=== PATIENT | female | born 1935 | race Caucasian/White ===

== ENCOUNTER 2019-04-08 07:14 | Day surgery (SDC) | payer OTHER | END 2019-04-08 13:45 | disposition home or self-care (01) | LOC: FASU 07:14 ==

== ENCOUNTER 2019-05-13 10:59 | Day surgery (SDC) | payer OTHER ==
[2019-05-13] MEDS ORDERED: CYCLOPENTOLATE HCL 1% OPHTH SOLN 2 ML BOTTLE ONE (11:13)
[2019-05-13] MEDS ORDERED: KETOROLAC TROMETHAMINE 0.5% EYE DROP 1 DROP DROPS ONE (11:14)
[2019-05-13] MEDS ORDERED: OFLOXACIN 0.3% OPHTHALMIC SOLUTION 5 ML BOTTLE ONE (11:14)
[2019-05-13] MEDS ORDERED: TROPICAMIDE 1% OPHTH SOLN 15 ML BOTTLE ONE (11:14)
[2019-05-13] MEDS ORDERED: PHENYLEPHRINE 2.5% OPHTH SOLN 15 ML BOTTLE ONE (11:14)
[2019-05-13] MEDS ORDERED: TROPICAMIDE 1% OPHTH SOLN 15 ML BOTTLE OD ONE ×4 (11:30→11:45)
[2019-05-13] MEDS ORDERED: OFLOXACIN 0.3% OPHTHALMIC SOLUTION 5 ML BOTTLE OD ONE ×2 (11:30→11:50)
[2019-05-13] MEDS ORDERED: PHENYLEPHRINE 2.5% OPHTH SOLN 15 ML BOTTLE OD ONE ×4 (11:30→11:45)
[2019-05-13] MEDS ORDERED: KETOROLAC TROMETHAMINE 0.5% EYE DROP 1 DROP DROPS OD ONE ×4 (11:30→11:45)
[2019-05-13] MEDS ORDERED: CYCLOPENTOLATE HCL 1% OPHTH SOLN 2 ML BOTTLE OD ONE ×4 (11:30→11:45)
[2019-05-13 11:53] VITALS: BMI 33.8
[2019-05-13] MEDS ORDERED: MIDAZOLAM HCL 2 MG/2 ML SINGLE DOSE VIAL ONE (12:44)
[2019-05-13] MEDS ORDERED: ACETAMINOPHEN 325 MG TABLET (FP) PO PRN (12:46)
[2019-05-13] MEDS ORDERED: NEO/POLYMYX B SULF/DEXAMETH OPHTHALMIC 5ML BOTTLE ONE ×2 (12:51→13:02)
[2019-05-13] MEDS ORDERED: EPI-SHUGARCAINE (EPINEPHRINE 0.025% & LIDOCAINE-PF 0.75%) 4ML ONE (12:51)
[2019-05-13] MEDS ORDERED: ACETYLCHOLINE 1:100 INTRA-OCUL 20 MG/2 ML KIT ONE ×3 (12:51→14:55)
[2019-05-13] MEDS ORDERED: POVIDONE-IODINE 5% OPHTHALMIC PREP 30 ML SOLUTION ONE (12:51)
[2019-05-13] MEDS ORDERED: BACITRACIN/POLYMYXIN OPH OINT 3.5 GM TUBE ONE ×2 (12:51→13:01)
[2019-05-13] MEDS ORDERED: TETRACAINE 0.5% OPHTH SOLN 2 ML BOTTLE ONE (12:51)
[2019-05-13] MEDS ORDERED: BETAXOLOL HCL 0.25% OPHTHALMIC 10 ML DROPSBTL ONE (12:51)
[2019-05-13] MEDS ORDERED: LIDOCAINE HCL/PF 2% SDV 5ML VIAL ONE (13:02)
[2019-05-13] MEDS ORDERED: BUPIVACAINE HCL/PF 0.5% (5MG/ML) 10 ML VIAL ONE (13:02)
[2019-05-13] MEDS ORDERED: LIDOCAINE HCL 2% JELLY 10 ML CARTRIDGE ONE (13:02)
[2019-05-13] MEDS ORDERED: BUPIVACAINE HCL/PF 0.5% (5MG/ML) 10 ML VIAL IJ ONE (13:19)
[2019-05-13] MEDS ORDERED: LIDOCAINE HCL 2% (50ML VIAL) INF ONE (13:19)
[2019-05-13] MEDS ORDERED: KETOROLAC TROMETHAMINE 30 MG/1 ML VIAL ONE (13:23)
[2019-05-13] MEDS ORDERED: PROPOFOL 20 ML ONE (13:26)
[2019-05-13] MEDS ORDERED: BSS (NA/CA/MG/K) BALANCED SALT SOLUTION OPHTH SOLN 15 ML BOTTLE ONE (14:26)
[2019-05-13] MEDS ORDERED: CARBACHOL 0.01% INTRA-OCULAR 1.5 ML VIAL ONE (14:55)
[2019-05-13] MEDS ORDERED: acetaZOLAMIDE 250 MG TABLET PO ONE (16:00)
[2019-05-13 16:17] VITALS: BP 132/74; PULSE 78; TEMP 98
--- NOTE | 2019-05-13 20:58 | OP ---
DATE OF OPERATION: 05/13/2019 PROCEDURE: Planned extracapsular cataract extraction, phacoemulsification, insertion of anterior chamber lens implant, right eye, pupillary myosis. PREOPERATIVE DIAGNOSIS: Hypermature cataract, right eye with pupillary myosis. POSTOPERATIVE DIAGNOSIS: Hypermature cataract, right eye with pupillary myosis. SURGEON: Jose Nguyen MD [employer] MEMBER SURGEON: Jose Nguyen MD ANESTHESIA: Local with standby. SERVICE AND REPAIR SUPERVISOR: Dr. Landa DESCRIPTION OF PROCEDURE: After successful peribulbar anesthesia was given in the operating room, the patient was prepped and draped in the usual manner to expose the right eye. Tegaderm strips and lid speculum were inserted, and a microscope were in position over the eye. A superior fornix-based flap was then fashioned for 12 mm and Sonya scissors and 0.12 forceps, and hemostasis achieved with electrocautery. The limbal grill was fashioned for 3 mm, and dissecting anterior into clear cornea, another 3-mm blade was used to enter the anterior chamber then under Viscoat, a 360-degree anterior capsulotomy was performed. It should be noted that the pupil was very myotic, and it was necessary to enlarge it. The capsule leaflet was removed from the eye. Phacoemulsification of this 4+ hypermature cataract was done very carefully and then after removal successfully of the entire nucleus, it was discovered that there was a posterior capsular rupture, and it was necessary to use a variety of techniques to aspirate the cortical material without disrupting the vitreous face. After this was accomplished, the Provisc was injected to push the vitreous back centrally, and Miochol was injected into the eye, and the pupil was constricted again. The wound was opened to 6 mm. The implant was inspected carefully with the microscope and found to be free of defect, debris, and flaws. , and it was placed as such that the inferior haptic and inferior angle and superior haptic and superior angle. Peripheral iridotomy was performed at 12 o'clock prior to the insertion of the implant. At this point, the implant was fixated over the centrally located, round pupil, and the anterior chamber was deep. The wound was closed with 3 interrupted 2-0 Ethilon sutures, and no leakage was found. The intraocular pressure was soft, and red reflex was obtained. The conjunctival tenon flap was reapproximated, and it should be noted that there was some irrigation of the Provisc that was removed from the eye prior to closure. The conjunctival tenon flaps were reapproximated. Topical Betoptic-S and Maxitrol drops were placed as was bacitracin polymyxin B ophthalmic ointment. The Tegaderm strips and lid speculum were removed from the lids. The lids were closed and a patch and shield placed on the eye, and the patient was then discharged from the operating room to the recovery in good condition having tolerated the procedure well. JOSE NGUYEN M.D. [id number]
== END 2019-05-13 16:10 | disposition home or self-care (01) ==
LOC: FASU 10:59
PROVIDERS: ATTEND Ophthalmology
PROC: 08RJ3JZ Replacement of Right Lens with Synthetic Substitute, Percutaneous Approach (ICD-10-PCS; principal; 2019-05-13 13:19)
DX: H25.21 Age-related cataract, morgagnian type, right eye (principal); H57.03 Miosis